=== PATIENT | female | born 1980 | race Caucasian/White ===

== ENCOUNTER 2022-02-07 03:04 | Emergency (ER) | payer MEDICAID ==
[~2022-02-07] VITALS: Ht 167.6 cm; Wt 80.0 kg
[2022-02-07] MEDS ORDERED: CEPH500C2 MT (03:48)
[2022-02-07] MEDS ORDERED: SULF1TAB48 MT (03:48)
[2022-02-07] MEDS ORDERED: SULFAMETHOXAZOLE/TRIMETHOPRIM 800/160MG TABLET PO ONE (04:00)
[2022-02-07] MEDS ORDERED: CEPHALEXIN 250MG CAPSULE PO ONE (04:00)
[2022-02-07 04:18] VITALS: BP 112/78
== END 2022-02-07 04:19 | disposition home or self-care (01) ==
LOC: ER 03:24
DX: T63.301A Toxic effect of unspecified spider venom, accidental (unintentional), initial encounter (principal); L03.317 Cellulitis of buttock; Y92.89 Other specified places as the place of occurrence of the external cause; F15.10 Other stimulant abuse, uncomplicated; F12.90 Cannabis use, unspecified, uncomplicated
CPT/HCPCS: 99283